=== PATIENT | female | born 1975 | race African-American/Black ===

== ENCOUNTER 2016-06-22 10:20 | Emergency (ER) | payer SELFPAY ==
[~2016-06-22 10:20] MED LIST: NO MEDICATIONS
[2016-06-22 10:55] LABS: BASOPHIL% 0.1 % (0-2.5); HEMATOCRIT 45.6 % (35.0-45.0); HEMOGLOBIN 15.1 gm/dL (12.0-16.0); LYMPHOCYTE# 1.1 X10e3 (1.0-3.5); LYMPHOCYTE% 6.5 % (17.0-45.0); MEAN CELL VOLUME 88.9 FL (83-96); MEAN CORPUSCULAR HEMOGLOBIN 29.5 PG (28-34); MEAN CORPUSCULAR HGB CONC 33.2 g/dL (30-36); MEAN PLATELET VOLUME 9.5 FL (6.5-11.5); MONOCYTE# 0.4 X10e3 (0-1.0); MONOCYTE% 2.4 % (3.0-12.0); NEUTROPHIL# 15.5 X10e3 (1.5-7.1); PLATELET COUNT 379 X10e3 (140-420); RED BLOOD COUNT 5.13 X10e (3.90-5.30); RED CELL DISTRIBUTION WIDTH 13.8 % (11.0-15.5); WHITE BLOOD COUNT 17.1 X10e3 (4.0-10.5)
[2016-06-22 10:58] LABS: DIFF IND NO
[2016-06-22 11:14] LABS: ALBUMIN SERUM 5.1 g/dL (3.5-5.0); BILIRUBIN,TOTAL 0.6 mg/dL (0.2-2.0); BUN/CREATININE RATIO 16.66; CALCIUM SERUM 9.9 mg/dL (8.4-10.2); CREATININE SERUM 0.9 mg/dL (0.6-1.4); GLOM FILT RATE Estimated 91.5 mL/min (>60); POTASSIUM 4.2 mmol/L (3.5-5.1); PROTEIN TOTAL SERUM 8.8 g/dL (6.0-8.3)
[2016-06-22 11:23] LABS: URINE SOURCE CLEAN CATCH
[2016-06-22 11:26] LABS: URINE APPEARANCE CLEAR; URINE BILIRUBIN NEG (NEG); URINE BLOOD 2+ (NEG); URINE COLOR YELLOW; URINE GLUCOSE 300 MG/DL (NORM); URINE LEUKOCYTE ESTERASE NEG (NEG); URINE NITRATE NEG (NEG); URINE PROTEIN NEG (NEG); URINE UROBILINOGEN 0.2 MG/DL (NORM)
[2016-06-22 11:29] LABS: MICRO INDICATED? YES; URINE KETONE 3+ (NEG)
[2016-06-22 11:33] LABS: CULTURE INDICATED? NO; URINE BACTERIA NEG (NEG); URINE WBC 0-2 /[HPF] (0-5)
== END 2016-06-22 13:01 | disposition home or self-care (01) ==
LOC: SED 10:20
PROVIDERS: Nurse Practitioner Family
DX: R11.2 Nausea with vomiting, unspecified (principal); R19.7 Diarrhea, unspecified; R10.9 Unspecified abdominal pain; E11.9 Type 2 diabetes mellitus without complications; F17.210 Nicotine dependence, cigarettes, uncomplicated; Z98.51 Tubal ligation status
CPT/HCPCS: 36415; 80053; 81003; 82150; 82947; 83690; 84703; 85025; 96374; 99284; J2405